=== PATIENT | male | born 1965 | race Two or more races ===

== ENCOUNTER 2021-06-07 17:14 | Emergency (ER) | payer OTHER, SELFPAY ==
[~2021-06-07] VITALS: Ht 165.1 cm; Wt 69.3 kg
--- NOTE | 2021-06-07 17:25 | NUR ---
UROLOGY TEACHER: PT BROUGHT BACK TO T3. MEDICAL IMAGING DIRECTOR AT [facility] TO START LINE AND LAB.
[2021-06-07] MEDS ORDERED: FENTANYL PF 100 MCG/2ML ONE (17:39)
--- NOTE | 2021-06-07 17:56 | NUR ---
PT BACK FROM CT. TOOK REPORT FROM BILL MCGOWAN
[2021-06-07] MEDS ORDERED: FENTANYL PF 100 MCG/2ML IV ONE (18:00)
--- NOTE | 2021-06-07 18:57 | NUR ---
RECIEVED REPORT FROM HOMER MCGOWAN. TRANSFER FO CARE.
[2021-06-07] MEDS ORDERED: DIAZEPAM 5 MG/ML, 2ML IV ONE (19:00)
[2021-06-07] MEDS ORDERED: DIAZEPAM 5 MG/ML, 2ML ONE (19:02)
--- NOTE | 2021-06-07 19:11 | NUR ---
Patient is resting comfortably in bed. Bed in lowest, rails engaged, call light on lap. Vital Signs within normal limits. WCTM. A&OX4, BREATHING EVEN AND UNLABORED. NO NEURO DEFICITS NOTED. PERRLA 4 SIZE
--- NOTE | 2021-06-07 19:33 | NUR ---
PT SIGNED MRI FORM. BRAYANKME TO PROJ MGR ON PHONE AND HE STATED HE WILL BY SOON TO GET PT.
--- NOTE | 2021-06-07 20:15 | NUR ---
LATE ENTRY DUE TO PT CARE. PT LEFT TO MRI 25 MINS AGO. PT STIULL IN MRI
--- NOTE | 2021-06-07 20:44 | NUR ---
PT BACK FROM MRI. PT LYING FLAT, IN C COLLAR. ATTACHED TO CARD/SP02/BP MONITORS. VSS. NADN BED IN LOW, RAILS ENGAGED, CALL LIGHT ON LAP.
[2021-06-07] MEDS ORDERED: KETOROLAC 30 MG/1 ML ONE (21:19)
[2021-06-07] MEDS ORDERED: GABAPENTIN 300 MG CAPSULE ONE (21:20)
--- NOTE | 2021-06-07 21:20 | NUR ---
JACKI INSTRUCTED THIS NURSE TO GIVE PTY PAIN MEDICATIOSN AND ATTEMPT TO GET PT UP AND WALKING.
[2021-06-07] MEDS ORDERED: KETOROLAC 30 MG/1 ML IVPush ONE (22:00)
[2021-06-07] MEDS ORDERED: GABAPENTIN 300 MG CAPSULE PO ONE (22:00)
--- NOTE | 2021-06-07 22:14 | NUR ---
PT PASSED ROADTEST. PT WAS ABLE TO AMBULATE DOWN HALLWAY WITH STEADY GAIT. PT C/O OR VERY BAD BURNING P[AIN IN BILAT SHOULDERS. PT CURRENTLY SITTING ON SIDE OF BED IN POSITION OF COMFORT WITH AT BEDSIDE. VSS. NO ADDITIONAL NEDEDS OR QUESTIONS. ERMD UPDATED.
[2021-06-07] MEDS ORDERED: LIDODERM 5% PATCH TD ONE ×2 (22:30→22:31)
[2021-06-07 22:50] VITALS: BP 117/55
--- NOTE | 2021-06-07 22:50 | NUR ---
TASK RN: DC EDUCATION PROVIDED, PT DEMONSTRATES UNDERSTANDING. PT AMBULATED STEADILY TO DC WTIH RN AND FAMILY. FAMILY TO TRANSPORT PT HOME
== END 2021-06-07 22:52 | disposition home or self-care (01) ==
LOC: ED 18:00
DX: S16.1XXA Strain of muscle, fascia and tendon at neck level, initial encounter (principal); R51.9 Headache, unspecified; X58.XXXA Exposure to other specified factors, initial encounter; Y93.89 Activity, other specified; Y92.89 Other specified places as the place of occurrence of the external cause; Y99.8 Other external cause status
CPT/HCPCS: 70450; 72125; 72141; 96374; 96375; 99285; J1885; J3010; J3360